=== PATIENT | female | born 1960 | race Caucasian/White ===

== ENCOUNTER → 2018-09-15 | Outpatient (CLI) | payer OTHER | LOC: FIMAGING 11:00 | PROVIDERS: ATTEND Family Medicine | DX: Z12.31 Encounter for screening mammogram for malignant neoplasm of breast (principal) ==

== ENCOUNTER → 2018-11-12 | Outpatient (CLI) | payer OTHER | LOC: GIMAGING 09:04 → EDSTATUS 15:39 | PROVIDERS: ATTEND Family Medicine | DX: T14.90XA Injury, unspecified, initial encounter (principal); M54.5 Low back pain; W19.XXXA Unspecified fall, initial encounter | CPT/HCPCS: 73521-PO ==

== ENCOUNTER → 2019-04-05 | Outpatient (CLI) | payer OTHER | LOC: EMCIMAGING 11:04 ==